=== PATIENT | female | born 1960 | race Caucasian/White ===

== ENCOUNTER 2023-08-04 12:15 | Outpatient (CLI) | payer OTHER, SELFPAY ==
--- NOTE | ~2023-08-04 | US_ITS ---
EXAMINATION: US venous doppler LE DATE: 08/04/2023 13:07 INDICATION: Right lower limb swelling TECHNIQUE: Grayscale ultrasound images without and with compression and Doppler ultrasound images of the right lower extremity veins were obtained. COMPARISON: None. FINDINGS: The visualized portions of right common femoral vein, profunda (deep) femoral vein, femoral vein, pop liteal vein, peroneal trunk, posterior tibial veins, peroneal veins, gastrocnemius vein and greater s aphenous vein outflow are patent. IMPRESSION: 1. No deep venous thrombosis in the right lower limb. Reviewed, dictated and finalized at location A. [employer]
== END 2023-08-04 12:16 | disposition home or self-care (01) ==
PROVIDERS: PCP Internal Medicine; Visit Provider Internal Medicine
DX: R22.42 Localized swelling, mass and lump, left lower limb (principal)
CPT/HCPCS: 93971

== ENCOUNTER 2023-11-08 14:06 | Outpatient (CLI) | payer OTHER, SELFPAY ==
--- NOTE | ~2023-11-08 | CT_ITS ---
EXAMINATION: CTA abdomen DATE: 11/08/2023 14:50 INDICATION: Epigastric abdominal pain. Chronic vascular disorders of intestine. Mesenteric vascular i nsufficiency. TECHNIQUE: Computed tomographic angiography (CTA) of the abdomen was performed with 100 mL Omnipaque- 350 intravenous contrast. The dose-length product was 626.28 mGy-cm. Maximum intensity projection 3D- reconstructions of the aorta and other arteries were constructed by the technologist on a separate wo rkstation. COMPARISON: None. FINDINGS: The visualized portions of the lung bases demonstrate mild atelectasis. No pleural effusion . The heart size is normal. No pericardial effusion. The liver and gallbladder are normal. Calcificat ions in the spleen are consistent with old granulomatous disease. The pancreas and right adrenal glan d are normal. There are 2 masses in left adrenal gland measuring soft tissue attenuation measuring up to 14 mm. The kidneys are normal. There is calcified atherosclerosis of the aorta and many of the ot her arteries. There is a 3.6 cm fusiform aneurysm of infrarenal aorta. There are patent stents in the common iliac arteries. There is mild stenosis of celiac axis, superior mesenteric artery, and inferi or mesenteric artery. There is mild stenosis of the renal arteries. There are no pathologically enlar ged lymph nodes. There is no free intraperitoneal fluid. There is severe lumbar spondylosis. IMPRESSION: 1. 3.6 cm fusiform aneurysm of infrarenal aorta. 2. No significant stenosis of the mesenteric arteries. 3. Left adrenal masses measuring up to 14 mm. In the absence of known malignancy, these findings are likely adenomas. Reviewed, dictated and finalized at location E. IMPRESSION: 1. 3.6 cm fusiform aneurysm of infrarenal aorta. 2. No significant stenosis of the mesenteric arteries. 3. Left adrenal masses measuring up to 14 mm. In the absence of known malignanc y, these findings are likely adenomas.
[2023-11-08 14:35] LABS: Estimated Glomerular Filt Rate 56
== END 2023-11-08 14:07 ==
LOC: MICIMG 14:07
PROVIDERS: PCP Internal Medicine
DX: K55.1 Chronic vascular disorders of intestine (principal); I71.43 Infrarenal abdominal aortic aneurysm, without rupture
CPT/HCPCS: 74175; Q9967

== ENCOUNTER 2023-12-23 10:02 | Outpatient (CLI) | payer OTHER, SELFPAY ==
[2023-12-23 10:45] LABS: Mean Corpuscular HGB Conc 34.1 g/dl (32-36); Mean Corpuscular Hemoglobin 31.6 pg (26-34); Mean Corpuscular Volume 92.6 fl (80-100); Mean Platelet Volume 10.8 fl (7.4-10.4); Platelet Count Result 251 k/mm3 (150-375); Red Blood Count 4.43 M/mm3 (4.2-5.4); Red Cell Distribution Width 12.8 % (11.5-14.5); White Blood Count 10.4 K/mm3 (4.5-10.0)
[2023-12-23 11:06] LABS: Alanine Aminotransferase 31 U/L (6-35); Albumin Level 4.2 g/dL (3.5-5.1); Alkaline Phosphatase 108 U/L (38-126); Amylase 61 U/L (30-110); Anion Gap 6 mmol/L (4-12); Aspartate Amino Transferase 30 U/L (14-36); Bilirubin,Total 0.4 mg/dL (0.2-1.3); Blood Urea Nitrogen 11 mg/dL (7-17); Calcium 9.1 mg/dL (8.4-10.2); Carbon Dioxide 27 mmol/L (22-30); Chloride 95 mmol/L (98-107); Estimated Glomerular Filt Rate > 60; Glucose 139 mg/dL (65-110); Lipase 117 U/L (23-300); Potassium 4.1 mmol/L (3.4-5.0); Sodium 128 mmol/L (137-145)
[2023-12-27 14:38] LABS: Immunoglobulin A 158 mg/dL (70-320); TTG IGA AB <1.0 U/mL
== END 2023-12-23 10:03 | disposition home or self-care (01) ==
LOC: ANHLAB 10:05
PROVIDERS: PCP Internal Medicine; Visit Provider Nurse Practitioner
DX: R14.0 Abdominal distension (gaseous) (principal); R10.816 Epigastric abdominal tenderness; R10.10 Upper abdominal pain, unspecified; K52.9 Noninfective gastroenteritis and colitis, unspecified
CPT/HCPCS: 36415; 80053; 82150; 82784; 83690; 85027; 86364

== ENCOUNTER 2023-12-24 09:58 | Outpatient (CLI) | payer OTHER, SELFPAY ==
[2023-12-24 11:45] LABS: Toxigenic C. Diff NEGATIVE (NEGATIVE)
[2023-12-29 16:01] LABS: H pylori Ag Stool Not Detected
[2024-01-05 10:25] LABS: Pancreatic Elastase, Stool 497
[2024-01-05 10:26] LABS: Calprotectin, Stool <5
== END 2023-12-24 09:59 | disposition home or self-care (01) ==
LOC: ANHLAB 09:59
PROVIDERS: PCP Internal Medicine; Visit Provider Nurse Practitioner
DX: A04.8 Other specified bacterial intestinal infections (principal); K29.50 Unspecified chronic gastritis without bleeding; K52.9 Noninfective gastroenteritis and colitis, unspecified; R10.10 Upper abdominal pain, unspecified; R10.816 Epigastric abdominal tenderness; R14.0 Abdominal distension (gaseous)
CPT/HCPCS: 82653; 83993; 87045; 87269; 87338; 87427; 87449; 87493

== ENCOUNTER 2023-12-29 09:29 | Outpatient (CLI) | payer OTHER, SELFPAY ==
--- NOTE | ~2023-12-29 | NM_ITS ---
EXAMINATION: NM hepatobiliary wo pharm DATE: 12/29/2023 12:05 INDICATION: Post prandial abdominal pain, bloating and nausea COMPARISON: None. TECHNIQUE: 5.2 mCi Tc-99m mebrofenin (Choletec) was administered intravenously. Scintigraphic images of the abdomen were obtained for one hour. At the 1 hour time point, the patient drank 8 oz Ensure, and imaging was continued for 60 minutes. Gallbladder ejection fraction was calculated by the technol ogist. FINDINGS: There is normal clearance of radiotracer from the blood pool. There is homogeneous tracer u ptake by the liver. Activity progresses to the bowel and gallbladder. The gallbladder ejection fract ion (GBEF) is 22%. Note that with this technique, normal GBEF >= 33%. IMPRESSION: 1. Gallbladder ejection fraction of 22% is below normal limits consistent with either gallbladder dy sfunction or chronic cholecystitis in the appropriate clinical setting. Reviewed, dictated and finalized at location A. IMPRESSION: 1. Gallbladder ejection fraction of 22% is below normal limits consistent with either gallbladder dysfunction or chronic cholecystitis in the appropriate cli nical setting.
== END 2023-12-29 09:30 | disposition home or self-care (01) ==
LOC: ANHIMG 09:30
PROVIDERS: PCP Internal Medicine; Visit Provider Nurse Practitioner
DX: R10.10 Upper abdominal pain, unspecified (principal); R10.816 Epigastric abdominal tenderness; R11.0 Nausea; R14.0 Abdominal distension (gaseous)
CPT/HCPCS: 78226; A9537

== ENCOUNTER 2024-01-17 01:02 | Day surgery (SDC) | payer OTHER, SELFPAY ==
[2024-01-10 13:29] VITALS: BMI 34.5
--- NOTE | 2024-01-10 13:32 | PC.NURSE ---
Addendum entered by Arnaldo Corbin RN 01/10/24 13:48: Also take Metoprolol morning of surgery. Original Note: Report to the Outpatient Waiting Room, entrance under the green pavilion located off [facility], at time _0800_ on date _[id number]_. Planned Procedure Time: _1000_. Time changes happen often and if your time is changed the preop area will call you the afternoon before. - You and your visitor will be asked to self-screen and do not enter if you have any COVID symptoms. - A mask is optional within the hospital at this time. Patients may have clear liquids (water, carbonated beverages, clear teas, apple juice) until 3 hours prior to surgery with a maximum of 20 ounces. - No food from midnight until time of surgery Take the following medications with a SIP of water the morning of surgery: __Alprazolam if needed. DO NOT STOP ANY OF YOUR OTHER PRESCRIPTION MEDICATIONS PRIOR TO SURGERY ?EXCEPT THE FOLLOWING Medications to discontinue per physician ____Says is stopping Chlopedogrel_today per Dr Crocker's instructions. Date to take last uyat__[id number] Please no make-up, nail faroese, hairspray, perfume, deodorant, or body powder the day of surgery. No jewelry (including any body piercings) or valuables the day of surgery, leave them at home. Please take a shower or bath the night before, or the morning of, surgery with an antibacterial soap. Wear comfortable, loose fitting clothing. - Jewelry must be removed prior to entering the operating room. Rings and piercings that are not removed may be cut off. - The hospital will not accept responsibility for valuables. - Please leave all valuables, including medications, at home the day of surgery. If you are going home after surgery, a licensed class b driver must drive you home. - NO public transportation without another adult if you receive anesthesia. - We recommend that an adult stay with you for 24 hours following discharge. - We also recommend that you do not drive, make important decision, drink alcoholic beverages, or take any drugs that were not prescribed by your health care provider for at least 24 hours after your discharge time. Follow any additional instructions given to you from your surgeon. If you or anyone in your household have experienced Covid symptoms in the past week, please notify your surgeon or the nurse liaison at the phone number below for possible testing. Telephone instructions given to __Tammy___and asked if any additional questions and then verbalized understanding. Patient advised to call surgeon office or pre surgery nurse liaison [phone] if any additional questions.
[2024-01-17] VITALS (18 sets, daily range): BP systolic 118–161; BP diastolic 58–85; PULSE 54–82; RESP 10–23; TEMP 36.1–37.2; O2SAT 90–98; BMI 34.4
[2024-01-17] MEDS: LACTATED RINGERS 1,000 ML 30 ML IV CONT ×2 (09:35→13:47)
[2024-01-17] MEDS: ACETAMINOPHEN 500 MG TABLET 1000 MG PO ×2 (09:48→20:46)
[2024-01-17 09:53] LABS: Sodium 129 mmol/L (137-145)
--- NOTE | 2024-01-17 10:00 | SUR.PREOP ---
1000- Notified Dr. Gilliam and Dr. Crocker of patient's sodium level 129 from lab draw today. Per Dr. Gilliam and Dr. Crocker OK to proceed with procedure.
[2024-01-17 10:04] LABS: Glucose Point of Care 128 mg/dl (65-105)
--- NOTE | 2024-01-17 10:12 | WPDHPUPDATE1 ---
History and Physical Update Update Date/Time: 01/17/24 10:12 History and Physical has been reviewed, including an updated exam of the patient. There are NO changes in the patient's condition. Risks, benefits, and alternatives have been discussed and questions answered. Patient agrees to proceed with procedure.
--- NOTE | 2024-01-17 10:19 | WPDANESEPPF ---
Anes - Initial Pre Proc Eval Procedure: Operation Date: 01/17/24 10:00 Proposed Procedures p Laparoscopic Cholecystectomy, Possible Open - Todd Crocker MD Date/Time: 01/17/24 10:19 Surgeon: Todd Crocker MD Pre Op Diagnosis: epigastric abdominal pain,biliary dyskinesia Patient Data Age: 63 Gender: F Height: 1.63 m Weight: 90.9 kg Last Vital Signs Temp 97.4 F L 01/17/24 09:06 Pulse 70 01/17/24 09:06 Resp 16 01/17/24 09:06 BP 123/85 01/17/24 09:06 Pulse Ox 98 01/17/24 09:06 O2 Del Method Room Air 01/17/24 09:06 Allergies Allergy/AdvReac Type Severity Reaction Status Date / Time naproxen Allergy Intermediate Gastrointestinal Verified 01/17/24 09:55 Upset prednisone Allergy Intermediate Rash Verified 01/17/24 09:55 NSAIDS (Non-Steroidal Allergy Unknown Unknown Verified 01/17/24 09:55 Anti-Inflamma STEROIDS Allergy Intermediate HIVES Uncoded 01/10/24 13:17 Home Medications Medication Instructions Recorded Confirmed Type alprazolam 0.5 mg tablet 0.5 mg PO DAILY 05/25/22 01/17/24 History amlodipine 10 mg tablet 10 mg PO DAILY 05/25/22 01/10/24 History atorvastatin 40 mg tablet 40 mg PO DAILY 05/25/22 01/10/24 History clopidogrel 75 mg tablet 75 mg PO DAILY 05/25/22 01/10/24 History levothyroxine 175 mcg tablet 175 mcg PO DAILY 05/25/22 01/10/24 History (Synthroid) metoprolol tartrate 50 mg tablet 50 mg PO BID 05/25/22 01/17/24 History olmesartan 40 mg tablet 40 mg PO DAILY 05/25/22 01/10/24 History paroxetine HCl 40 mg tablet 40 mg PO DAILY 05/25/22 01/10/24 History csogxe-uufgtwil-wlgnbkp 2 cap PO QID #300 caps 12/29/23 01/10/24 Rx 36,000-114,000-180,000 unit capsule,delay rel (Creon) colestipol 1 gram tablet See Rx Instructions .Route 01/03/24 01/10/24 Rx .COMPLEX #180 tabs sucralfate 1 gram tablet See Rx Instructions .Route 01/03/24 01/10/24 Rx .COMPLEX #360 tabs glimepiride 1 mg tablet 1 mg PO QPM 01/10/24 01/10/24 History Laboratory Tests 01/17/24 01/17/24 09:42 09:47 Sodium 129 L mmol/L (137-145) POC Capillary Glucose 128 H mg/dl (65-105) Patient hx anesthesia problems: none Family hx anesthesia problems: none Results Review: All pre-operative results and documents have been reviewed as part of the pre-operative evaluation. [facility] Past Medical History Medical History Anxiety and depression Aortic dissection Arthritis Hepatitis (~1970) High cholesterol Hypertension Hypothyroidism Primary osteoarthritis of left knee Screening mammogram, encounter for Surgical History Surgical History History of breast biopsy (L) breast--benign History of cataract surgery (~2015) History of gynecologic surgery cryotherapy to cervix History of hand surgery (B) hand surgery History of left knee replacement History of right knee surgery History of suburethral sling procedure (~05/2018) History of surgery on lower extremity (~2016) stent in (R) leg History of total hysterectomy Family History Family History Father Diabetes mellitus Heart disease Cerebrovascular accident Hypertension Family history of malignant neoplasm Patient's father is Mother Family history of malignant neoplasm Grandparent Family history of malignant neoplasm maternal grandmother Other Family history of arthritis Family history of cardiovascular disease Family history of seizure disorder Social History Social History (Updated 01/05/24 @ 13:15 by Lashanda Louie CMA) Smoking packs per day: 1.5 Smoking cigarettes per day: 30.0 Years smoked: 45 Smoking pack-years: 67.50 Smoking status: Current every day smoker Tobacco type: cigarettes Alcohol intake: current Drinks per week: 21 Substance use: never Substance use type: does not
[2024-01-17] MEDS: ceFAZolin 2 GM/D5W 50 ML 2 GM/50 ML BAG IVPB (11:44)
[2024-01-17] MEDS: LIDO 1%/EPINEPHRINE 1:100,000 20 ML VIAL 30 ML INFILTRATE (11:59)
[2024-01-17] MEDS: BUPivacaine HCL 0.5% 10 ML AMP 30 ML INFILTRATE (12:00)
[2024-01-17 14:08] LABS: Glucose Point of Care 220 mg/dl (65-105)
--- NOTE | 2024-01-17 14:19 | SUR.PHASEI ---
1403 - o2 sat at 88-90% on nonrebreather and with nasal airway in place. dr. colindres called and aware 1418 - dr. colindres in PACU assessing pt. order received for albuterol treatment. dr. colindres aware of accucheck 220. no orders received at this time
[2024-01-17] MEDS: ALBUTEROL SULFATE NEB 2.5 MG/3 ML INH INHALATION (14:30)
[2024-01-17] MEDS: fentaNYL CITRATE INJ (*CRX) 100 MCG/2 ML VIAL 25 MCG IV PUSH (14:51)
--- NOTE | 2024-01-17 16:10 | ADMGEN ---
This patient, Melissa Reagan, was admitted to Medical Room 249-01. Patient/family oriented to hospital policies and general routines including ID bracelet, bed and alarms, visiting hours, pain management, procedures, bathroom and other care routines, personal items, smoking policy, room service/diet, and visiting hours. Information on how to activate the Rapid Response Team has been discussed. Patient/Family are encouraged to report perceived risks to care and to ask questions if they do not understand what they are told or what they should do.
[2024-01-17] MEDS: HYDROcodone/acetaminophen (*CRX) 5-325 MG TABLET 1 TAB PO (16:39)
[2024-01-17 16:59] LABS: Glucose Point of Care 203 mg/dl (65-105)
[2024-01-17] MEDS: LIPASE/AMYLASE/PROTEASE 12,000 UNITS CAP 6 CAP PO ×2 (17:42→20:41)
[2024-01-17] MEDS: PARoxetine 20 MG TABLET 40 MG PO (17:44)
[2024-01-17] MEDS: ATORVASTATIN 40 MG TABLET PO (17:44)
[2024-01-17] MEDS: SUCRALFATE 1 GM TABLET BY MOUTH ×2 (17:44→20:45)
[2024-01-17] MEDS: LEVOTHYROXINE SODIUM 75 MCG TABLET PO (17:44)
[2024-01-17] MEDS: GLIMEPIRIDE 1 MG TABLET PO (17:45)
[2024-01-17 20:32] LABS: Glucose Point of Care 229 mg/dl (65-105)
[2024-01-17] MEDS: oxyCODONE HCL (*CRX) 5 MG TAB IR PO (20:41)
[2024-01-17] MEDS: METOPROLOL TARTRATE 50 MG TAB PO (20:42)
[2024-01-18] VITALS (8 sets, daily range): BP systolic 107–132; BP diastolic 50–69; PULSE 70–75; RESP 16–21; TEMP 36.5–37.1; O2SAT 90–96
[2024-01-18] MEDS: HYDROcodone/acetaminophen (*CRX) 5-325 MG TABLET 1 TAB PO ×2 (04:34→12:55)
[2024-01-18 05:48] LABS: Basophils Percent Auto 0.4 % (0.2-1.2); Eosinophils Absolute Auto 0.2 K/mm3 (0-0.3); Eosinophils Percent Auto 1.4 % (0-4.4); Hematocrit 38.4 % (37.0-47.0); Hemoglobin 12.8 g/dL (12.0-15.0); Immature Granulocyte Absolute 0.04 K/mm3 (0.00-0.031); Immature Granulocyte Percent A 0.4 % (0-0.5); Lymphocytes Absolute Auto 1.06 K/mm3 (0.9-3.2); Lymphocytes Percent Auto 9.9 % (18.3-44.2); Mean Corpuscular HGB Conc 33.3 g/dl (32-36); Mean Corpuscular Hemoglobin 31.6 pg (26-34); Mean Corpuscular Volume 94.8 fl (80-100); Mean Platelet Volume 10.2 fl (7.4-10.4); Monocytes Absolute Auto 0.9 K/mm3 (0.1-0.6); Monocytes Percent Auto 8.1 % (2.6-8.5); Neutrophils Absolute Auto 8.6 K/mm3 (1.3-6.7); Neutrophils Percent Auto 79.8 % (45.5-73.1); Platelet Count Result 231 k/mm3 (150-375); Red Blood Count 4.05 M/mm3 (4.2-5.4); Red Cell Distribution Width 13.3 % (11.5-14.5); White Blood Count 10.7 K/mm3 (4.5-10.0)
[2024-01-18 05:59] LABS: Alanine Aminotransferase 43 U/L (6-35); Alkaline Phosphatase 93 U/L (38-126); Anion Gap 7 mmol/L (4-12); Aspartate Amino Transferase 39 U/L (14-36); Bilirubin,Total 0.8 mg/dL (0.2-1.3); Blood Urea Nitrogen 11 mg/dL (7-17); Calcium 8.5 mg/dL (8.4-10.2); Carbon Dioxide 27 mmol/L (22-30); Chloride 94 mmol/L (98-107); Estimated CRCL calculation 78 ml/min; Estimated Glomerular Filt Rate > 60; Glucose 142 mg/dL (65-110); Potassium 4.1 mmol/L (3.4-5.0); Sodium 128 mmol/L (137-145)
--- NOTE | 2024-01-18 07:59 | P.PNAN_ITS ---
Anes - Prog Note Post-Op Date/Time: 01/18/24 07:59 Cardiovascular status: normal Respiratory status: normal Airway patency: baseline Mental status: baseline Post-Op hydration status: normal Vital Signs: Last Vital Signs Temp 36.5 C 01/18/24 04:08 Pulse 75 01/18/24 04:08 Resp 20 01/18/24 04:08 BP 130/69 01/18/24 04:08 Pulse Ox 96 01/18/24 04:08 O2 Del Method Nasal Cannula 01/17/24 20:00 O2 Flow Rate 4 01/17/24 20:00 Pain Score (VAS): 09/25 I/O: Intake & Output 01/17/24 01/17/24 01/18/24 15:59 23:59 07:59 Intake Total 250 120 290 Output Total 430 Balance 250 120 -140 Laboratory Tests 01/18/24 05:28 01/18/24 05:28 01/17/24 01/17/24 01/17/24 09:42 09:47 14:04 WBC RBC Hgb Hct MCV MCH MCHC RDW Plt Count MPV Immature Gran % (Auto) Neut % (Auto) Lymph % (Auto) Mccormick % (Auto) Eos % (Auto) Baso % (Auto) Lymph # (Auto) Mccormick # (Auto) Eos # (Auto) Baso # (Auto) Abs Immat Gran (auto) Absolute Neuts (auto) Absolute Nucleated RBC Nucleated RBC % Sodium 129 L Potassium Chloride Carbon Dioxide Anion Gap BUN Creatinine Estim Creat Clear Calc Estimated GFR Glucose POC Capillary Glucose 128 H 220 H Calcium Total Bilirubin AST ALT Alkaline Phosphatase Total Protein Albumin 01/17/24 01/17/24 01/18/24 16:52 19:45 05:28 WBC 10.7 H RBC 4.05 L Hgb 12.8 Hct 38.4 MCV 94.8 MCH 31.6 MCHC 33.3 RDW 13.3 Plt Count 231 MPV 10.2 Immature Gran % (Auto) 0.4 Neut % (Auto) 79.8 H Lymph % (Auto) 9.9 L Mccormick % (Auto) 8.1 Eos % (Auto) 1.4 Baso % (Auto) 0.4 Lymph # (Auto) 1.06 Mccormick # (Auto) 0.9 H Eos # (Auto) 0.2 Baso # (Auto) 0.0 Abs Immat Gran (auto) 0.04 H Absolute Neuts (auto) 8.6 H Absolute Nucleated RBC 0.000 Nucleated RBC % 0.0 Sodium 128 L Potassium 4.1 Chloride 94 L Carbon Dioxide 27 Anion Gap 7 BUN 11 Creatinine 0.70 Estim Creat Clear Calc 78 Estimated GFR > 60 Glucose 142 H POC Capillary Glucose 203 H 229 H Calcium 8.5 Total Bilirubin 0.8 AST 39 H ALT 43 H Alkaline Phosphatase 93 Total Protein 7.0 Albumin 4.0 Post-procedural complaints: none Patient Feedback: Patient satisfied with anesthetic care.
[2024-01-18 08:26] LABS: Glucose Point of Care 142 mg/dl (65-105)
[2024-01-18] MEDS: OLMESARTAN MEDOXOMIL 20 MG TABLET 40 MG PO (08:26)
[2024-01-18] MEDS: METOPROLOL TARTRATE 50 MG TAB PO (08:26)
[2024-01-18] MEDS: LIPASE/AMYLASE/PROTEASE 12,000 UNITS CAP 6 CAP PO (08:26)
--- NOTE | 2024-01-18 10:45 | PM.PNGS ---
Progress Note: A&P Assessment and Plan (1) Acalculous cholecystitis: Code(s): K81.9 - Cholecystitis, unspecified Status: Acute Assessment and Plan: Postop day 1 following laparoscopic cholecystectomy. She is doing well this morning. MARK drain is serosanguineous. Will advance to a low fat diet. Increase activity and try ambulating in the halls. Will also have nursing wean down her oxygen. If she is unable to wean off O2, will need to re-evaluate. Encouraged IS use. Hopefully she can discharge later today or tomorrow if she is stable and off oxygen. Will plan to remove her MARK drain prior to discharge. Plan I have discussed the patient's case and plan of care with Dr. Crocker. Subjective Subjective Date/Time Seen: 01/18/24 10:45 Post Op day: 1 (Laparoscopic cholecystectomy) Patient reports: no new complaints, voiding w/o difficulty, flatus, no bowel movement and afebrile Interval history: Patient required oxygen following surgery and is currently on 4 L this morning. She was kept overnight for monitoring. She denies any shortness of breath or chest pain. She has been ambulating with the staff and tolerating this well. The staff has decreased her oxygen to 2 L via nasal cannula this morning with an oxygen saturation of 95%. She is tolerating clear liquids with no nausea or vomiting. No other complaints at this time. She had 30 cc out of her MARK drain overnight. Exam Const: General: comfortable and no acute distress Orientation/consciousness: patient oriented x3 Resp: Effort & Inspection: normal respiratory effort Auscultation: clear to auscultation bilaterally Cardio: Rate: regular rate Rhythm: regular rhythm GI: Inspection: non-distended, incision (Dry with glue intact, no erythema or drainage) and other (Right upper quadrant MARK drain with serosanguineous drainage) GI Palp: Yes Soft to palpation, Yes Tenderness to palpation present (GI) (Expected incisional tenderness), No Guarding due to palpation present (GI), Yes No hepatosplenomegaly present and No Rebound tenderness present Auscultation: Hypoactive bowel sounds present Objective Data Vital Signs Vital Signs: Vital Signs - 24 hr 01/17/24 13:47 01/17/24 14:00 01/17/24 14:15 Temperature 96.9 F L Pulse Rate 54 L 65 67 Respiratory Rate 23 H 20 20 Blood Pressure 157/67 H 154/74 H 161/77 H Pulse Oximetry 92 90 91 Oxygen Delivery Simple Face Mask Non-Rebreather Mask Non-Rebreather Mask Oxygen Flow Rate 8 10 10 01/17/24 14:30 01/17/24 14:45 01/17/24 15:00 Temperature Pulse Rate 72 72 75 Respiratory Rate 20 18 18 Blood Pressure 148/69 H 140/60 147/61 H Pulse Oximetry 95 93 93 Oxygen Delivery Non-Rebreather Mask Simple Face Mask Simple Face Mask Oxygen Flow Rate 10 8 8 01/17/24 15:15 01/17/24 15:30 01/17/24 14:30 Temperature Pulse Rate 72 72 71 Respiratory Rate 20 16 16 Blood Pressure 121/64 130/58 L Pulse Oximetry 94 96 Oxygen Delivery Nasal Cannula Nasal Cannula Oxygen Flow Rate 4 4 01/17/24 14:40 01/17/24 16:23 01/17/24 16:00 Temperature 97.7 F Pulse Rate 73 73 Respiratory Rate 16 10 L Blood Pressure 138/60 Pulse Oximetry 94 95 Oxygen Delivery Nasal Cannula Oxygen Flow Rate 4 01/17/24 16:15 01/17/24 16:20 01/17/24 16:45 Temperature 98.0 F 98.0 F Pulse Rate 76 75 Respiratory Rate 14 16 Blood Pressure 130/62 124/62 Pulse Oximetry 95 95 95 Oxygen Delivery Nasal Cannula Oxygen Flow Rate 4 01/17/24 18:00 01/17/24 19:46 01/17/24 20:00 Temperature 98.3 F 98.9 F Pulse Rate 81 81 82 Respiratory Rate 12 18 18 Blood Pressure 133/60 118/64 Pulse Oximetry 96 96 97 Oxygen Delivery Nasal Cannula Oxygen Flow Rate 4 01/18/24 04:08 01/18/24 08:19 01/18/24 08:26 Temperature 97.7 F Pulse Rate 75 72 Respiratory Rate 20 Blood Pressure 130/69 Pulse Oximetry 96 95 Oxygen Delivery Nasal Cannula Oxygen Flow Rate 4 01/18/24 08:20 01/18/24 10:00 Temperature 97.7 F Puls
[2024-01-18 11:46] LABS: Glucose Point of Care 138 mg/dl (65-105)
--- NOTE | 2024-01-18 13:35 | PM.DS ---
DS: Admitting Diagnosis Discharge Date 01/18/2024 Admitting Diagnosis Biliary dyskinesia Epigastric abdominal pain Anti-platelet therapy DS: Discharge Diagnosis Discharge Diagnosis (1) Acalculous cholecystitis: Code(s): K81.9 - Cholecystitis, unspecified Status: Acute (2) Antiplatelet or antithrombotic long-term use: Code(s): Z79.02 - long term care social worker (current) use of antithrombotics/antiplatelets Status: Acute DS: Summary Hospital Course Reason for hospitalization: This is a 63-year-old woman who was seen by Dr. Crocker in a our office as an outpatient for epigastric abdominal pain and biliary dyskinesia. Discussions had regarding treatment options and decision was made to proceed with a laparoscopic cholecystectomy. She presented for outpatient surgery on 01/17/2024. Hospital Course: She underwent laparoscopic cholecystectomy by Dr. Crocker on 01/17/2024. There were a lot of adhesions and inflammation during surgery and she had a MARK drain placed for monitoring. In recovery, she required oxygen after extubation as well. She was kept overnight for monitoring with the MARK drain in place. This morning, she was on 4 L of O2. She has been able to easily wean off of oxygen today with an O2 saturation of 95%. She was able to ambulate and walk in the halls and maintained an oxygen saturation greater than 95% with ambulating. Her diet was advanced to a low-fat diet today. She is tolerating her diet well with no nausea or vomiting. Pain has been well controlled. Her MARK drain appears serosanguineous today without any bilious appearance. After discussing with Dr. Crocker, the patient appears stable for discharge. Will remove her MARK drain prior to discharge. He is okay with her resuming her Plavix on discharge. Will have her follow-up in the office in 2 weeks. Time spent discussing smoking cessation with patient: 3 to 10 minutes Status at Discharge Functional status at discharge: independent ambulation Overall status at discharge: patient is progressing back to baseline Time Spent with Patient Time attestation: Total time spent providing and/or coordinating discharge services: Time spent: Less than 30 minutes DS: Data Data Completed and Pending Completed studies during hospitalization: Pending at discharge 01/17/24 12:00 Surgical [PTH] Routine Labs on day of discharge: Labs from last 24 hours 01/18/24 01/18/24 01/18/24 11:32 08:08 05:28 WBC 10.7 H RBC 4.05 L Hgb 12.8 Hct 38.4 MCV 94.8 MCH 31.6 MCHC 33.3 RDW 13.3 Plt Count 231 MPV 10.2 Immature Gran % (Auto) 0.4 Neut % (Auto) 79.8 H Lymph % (Auto) 9.9 L Kings % (Auto) 8.1 Eos % (Auto) 1.4 Baso % (Auto) 0.4 Lymph # (Auto) 1.06 Kings # (Auto) 0.9 H Eos # (Auto) 0.2 Baso # (Auto) 0.0 Abs Immat Gran (auto) 0.04 H Absolute Neuts (auto) 8.6 H Absolute Nucleated RBC 0.000 Nucleated RBC % 0.0 Sodium 128 L Potassium 4.1 Chloride 94 L Carbon Dioxide 27 Anion Gap 7 BUN 11 Creatinine 0.70 Estim Creat Clear Calc 78 Estimated GFR > 60 Glucose 142 H POC Capillary Glucose 138 H 142 H Calcium 8.5 Total Bilirubin 0.8 AST 39 H ALT 43 H Alkaline Phosphatase 93 Total Protein 7.0 Albumin 4.0 01/17/24 01/17/24 01/17/24 19:45 16:52 14:04 WBC RBC Hgb Hct MCV MCH MCHC RDW Plt Count MPV Immature Gran % (Auto) Neut % (Auto) Lymph % (Auto) Kings % (Auto) Eos % (Auto) Baso % (Auto) Lymph # (Auto) Kings # (Auto) Eos # (Auto) Baso # (Auto) Abs Immat Gran (auto) Absolute Neuts (auto) Absolute Nucleated RBC Nucleated RBC % Sodium Potassium Chloride Carbon Dioxide Anion Gap BUN Creatinine Estim Creat Clear Calc Estimated GFR Glucose POC Capillary Glucose 229 H 203 H 220 H Calcium Total Bilirubin AST ALT
--- NOTE | 2024-01-18 16:36 | W.PM.PROC2 ---
Procedure Note - Detailed Date of Procedure 01/18/24 Pre-op Diagnosis epigastric abdominal pain,biliary dyskinesia Post-op Diagnosis Same Procedure Performed Laparoscopic cholecystectomy. Surgeon Todd Crocker MD Anesthesia General Indications Findings Description of Procedure The patient had no gallstones. Gallbladder wall is only mildly thickened and there were copious tenacious adhesions of the omentum to the gallbladder wall. I then placed additional trocar ports in the abdomen to perform the dissection or laparoscopically. The gallbladder was held with a laparoscopic grasper at the dome and then the copious and tenacious adhesions of the omentum to the gallbladder wall were bluntly stripped down. This exposed infundibular gallbladder which was held with a 2nd rest laparoscopic grasper. I was then able to start my dissection down along the infundibular gallbladder to identify what appeared to be the cystic duct. Before acute get the duct completely encircle with bisector the gallbladder wall ripped in a copious amounts of nonpurulent bile drain out the gallbladder. No gallstones were noted drained out. I then continued my dissection on what appeared to be the cystic duct and dissected this structure out circumferentially. The cystic artery was identified dissected out circumferentially as well. Once I had left was the critical view I then placed 2 clips proximally cystic duct and 2 clips distally high on infundibular gallbladder. Cystic duct was then divided with Endo Gerald. In a similar fashion cystic artery was clipped and divided as well. I then transected the gallbladder at the distal portion of the infundibulum. I then placed 0 Endoloops x2 on the small infundibular remnant. There was evidence of bile leak after it was ligated. The gallbladder was resected off the liver utilizing electrocautery. once the gallbladder completely free from liver is placed into an Endo-Catch bag and brought out through the epigastric port site. Gallbladder had no stones within it. It was sent to pathology for examination. I then irrigated out the right upper quadrant abdomen copious amounts sterile saline solution. There was some bleeding from the gallbladder bed. Then treated with topical hemostatic agents to include Surgicel. This was then eventually cauterized with pinpoint cautery to achieve hemostasis. The area was then irrigated sterile saline solution hemostasis was good. No evidence of bile leak remained. I aspirated fluid from the right upper quadrant the abdomen until it was relatively clear. I then removed all the trocar ports under visualization all port sites appeared hemostatic. I then allowed the abdomen decompress . The incisions were then cleaned and then 0 Vicryl sutures placed in the periumbilical trocar port and in the right upper quadrant trocar port. Subcutaneous tissues then closed with multiple layers of interrupted 2-0 and 3-0 Vicryl sutures. skin edges were approximated utilizing a running subcuticular 4 Monocryl suture the incisions were then cleaned and skin glue sterile dressings were applied. the pertinent physical exam and reviewed and confirmed the patient's medicine list.? ? I have formulated the surgical care plan and I agree with the documented note above. The patient tolerated the procedure well no complications. All sponges, needles, and instrument counts were correct at the end procedure. EBL was _100__cc. The patient was awakened and taken to recovery in stable and satisfactory condition. Implants None Estimated Blood Loss 100 Urine Output 400 Drains Yes ( 15 [place] round Marco Antonio drain right upper quadrant.) Packing No Pathology None sent Complications No immediate complications Condition Stable Disposition PACU [facility] Billing Surgery - Charge Forward: Surgery Billing
== END 2024-01-18 14:42 | disposition home or self-care (01) ==
LOC: ANHSURGERY 09:51 → ANH2MED 15:45
PROVIDERS: Anesthesiology; PCP Internal Medicine; Visit Provider Surgery
PROC: 0FT44ZZ Resection of Gallbladder, Percutaneous Endoscopic Approach (ICD-10-PCS; CPT 47562; principal; 2024-01-17 10:00)
DX: K80.20 Calculus of gallbladder without cholecystitis without obstruction (principal); Z79.02 Long term (current) use of antithrombotics/antiplatelets; F17.210 Nicotine dependence, cigarettes, uncomplicated; F41.8 Other specified anxiety disorders; I10 Essential (primary) hypertension; E03.9 Hypothyroidism, unspecified; E78.00 Pure hypercholesterolemia, unspecified
CPT/HCPCS: 47562; 36415; 80053; 82948; 84295; 85025; 88304; 94640; A9270; J0690; J2405; J2704; J3010; J7030; J7120

== ENCOUNTER 2024-05-19 03:02 | Day surgery (SDC) | payer OTHER, SELFPAY ==
--- NOTE | 2024-05-09 12:56 | PC.NURSE ---
Spoke with PATIENT regarding medication Plavix. Pt. verbalizes understanding that the last dose of Plavix is to be taken on _05/09/2024 and the Endoscopist will instruct them when to restart after the procedure. Pt was also on Cilostazol earlier in the year but ran out and states it was a trial to see if it help with her peripheral problems and she did not feel any different and plans to discuss next visit with Dr. Dorsey.
[2024-05-12 10:28] VITALS: BMI 33.1
[2024-05-19 09:18] VITALS: BP 114/63; PULSE 72; RESP 16; TEMP 36.4; O2SAT 97; BMI 32.3
[2024-05-19] MEDS: LACTATED RINGERS 1,000 ML 150 ML IV CONT (09:45)
[2024-05-19 09:53] LABS: Glucose Point of Care 140 mg/dl (65-105)
--- NOTE | 2024-05-19 10:04 | WPDANESEPPF ---
Anes - Initial Pre Proc Eval Procedure: Operation Date: 05/19/24 10:30 Proposed Procedures p Esophagogastroduodenoscopy & Colonoscopy - Kendall Barrios MD Date/Time: 05/19/24 10:04 Surgeon: Kendall Barrios MD Pre Op Diagnosis: IBS Patient Data Age: 63 Gender: F Height: 1.65 m Weight: 88.1 kg Last Vital Signs Temp 97.5 F L 05/19/24 09:18 Pulse 72 05/19/24 09:18 Resp 16 05/19/24 09:18 BP 114/63 05/19/24 09:18 Pulse Ox 97 05/19/24 09:18 O2 Del Method Room Air 05/19/24 09:18 Allergies Allergy/AdvReac Type Severity Reaction Status Date / Time naproxen Allergy Intermediate Gastrointestinal Verified 05/19/24 09:49 Upset prednisone Allergy Intermediate Rash Verified 05/19/24 09:49 NSAIDS (Non-Steroidal Allergy Unknown Gastrointestinal Verified 05/19/24 09:49 Anti-Inflamma Upset STEROIDS Allergy Intermediate HIVES Uncoded 05/19/24 09:49 Home Medications Medication Instructions Recorded Confirmed Type alprazolam 0.5 mg tablet 0.5 mg PO TID PRN Anxiety 05/25/22 05/19/24 History amlodipine 10 mg tablet 10 mg PO QPM 05/25/22 05/19/24 History atorvastatin 40 mg tablet 40 mg PO QPM 05/25/22 05/19/24 History clopidogrel 75 mg tablet 75 mg PO QPM 05/25/22 05/19/24 History levothyroxine 175 mcg tablet 175 mcg PO QPM 05/25/22 05/19/24 History (Synthroid) metoprolol tartrate 50 mg tablet 50 mg PO BID 05/25/22 05/19/24 History olmesartan 40 mg tablet 40 mg PO QPM 05/25/22 05/19/24 History paroxetine HCl 40 mg tablet 40 mg PO QPM 05/25/22 05/19/24 History glimepiride 1 mg tablet 2 mg PO QAM 01/10/24 05/19/24 History glimepiride 1 mg tablet 1 mg PO QPM 05/12/24 05/19/24 History lansoprazole 30 mg capsule,delayed 30 mg PO HS 05/12/24 05/19/24 History release belykk-mgnhsuyk-hooqdea 2 cap PO TID 05/12/24 05/19/24 History 36,000-114,000-180,000 unit capsule,delay rel (Creon) vibegron 75 mg tablet (Gemtesa) 75 mg PO HS 05/12/24 05/19/24 History Laboratory Tests 05/19/24 09:39 POC Capillary Glucose 140 H mg/dl (65-105) Patient hx anesthesia problems: none Family hx anesthesia problems: none Results Review: All pre-operative results and documents have been reviewed as part of the pre-operative evaluation. [facility] Past Medical History Medical History Antiplatelet or antithrombotic long-term use Anxiety and depression Aortic dissection Arthritis Chronic alcohol abuse Epigastric abdominal pain Hepatitis (~1970) High cholesterol Hypertension Hypothyroidism Irritable bowel syndrome with diarrhea Primary osteoarthritis of left knee Screening mammogram, encounter for Surgical History Surgical History History of breast biopsy (L) breast--benign History of cataract surgery (~2015) History of gynecologic surgery cryotherapy to cervix History of hand surgery (B) hand surgery History of laparoscopic cholecystectomy 01/17/24 History of left knee replacement History of right knee surgery History of suburethral sling procedure (~05/2018) History of surgery on lower extremity (~2016) stent in (R) leg History of total hysterectomy Family History Family History Father Diabetes mellitus Heart disease Cerebrovascular accident Hypertension Family history of malignant neoplasm Patient's father is Mother Family history of malignant neoplasm Grandparent Family history of malignant neoplasm maternal grandmother Other Family history of arthritis Family history of cardiovascular disease Family history of seizure disorder Social History Social History Smoking packs per day: 1.5 Smoking cigarettes per day: 30.0 Years smoked: 45 Smoking pack-years: 67.50 Smoking status: Current every day smoker Tobacco type: cigarettes Second hand tobacco smoke exposure: Yes Alcohol intake: current Drinks per week: 12 Alcohol use details: ROSA/RAZIA Substance use: never Substance use type: does not use Do You Feel Safe in your Home?: Yes Lack of Transportation: No Lack of Food: Never True Current Housing: I Have Housing Concerned About Future Housing: No Difficulty Paying Gas/Electric Bills: No Difficulty Paying for Meds: No Currently Unemployed: No Education: High School Diploma/GED Difficulty w/ Childcare or Family Care: No Living arrangements: with family Additional living arrangements comments: Occupation/Education: retired Additional occupation/education comments: driving school bus Gender identity (if verbalized by the patient): Female Sexual Orientation (if Verbalized by the Patient): Straight or Heterosexual Spiritual care concerns: No Anes - Eval Final PreProcedure Day of Procedure 05/19/24 10:04 Patient weight: overweight Heart: regular rate and rhythm Lungs: decreased breath sounds Airway: Mallampati scale class II Neurological: alert and oriented Last oral intake: >/= 8 hours ASA classification: III Emergent: no Anesthetic plan: proceed Anesthesia type and monitoring: general GIVS and standard monitoring Results Review: All pre-operative results and documents have been reviewed as part of the pre-operative evaluation. Informed Consent: The patient's anesthetic plan and its attendant risks and benefits were discussed with the patient/family/POA. Questions were solicited and answers provided to the satisfaction of the patient/family/POA.
--- NOTE | 2024-05-19 10:07 | PM.IMHP ---
H&P: HPI History of Present Illness Date/Time: 05/19/24 10:07 Chief Complaint: Dyspepsia, abdominal distension, change in bowel habits. Narrative: This patient has been seen last month in consultation with several GI complaints, including early satiety, nausea, intermittent diarrhea, abdominal distension. She has tried multiple medications but Creon seems to be helping for diarrhea. She had no response to Xifaxan. Of note, she had a laparoscopic cholecystectomy for gallbladder dysfunction, But diarrhea did not get resolved with colestipol PMFSH Past Medical History Medical History Antiplatelet or antithrombotic long-term use Anxiety and depression Aortic dissection Arthritis Chronic alcohol abuse Epigastric abdominal pain Hepatitis (~1970) High cholesterol Hypertension Hypothyroidism Irritable bowel syndrome with diarrhea Primary osteoarthritis of left knee Screening mammogram, encounter for Surgical History Surgical History History of breast biopsy (L) breast--benign History of cataract surgery (~2015) History of gynecologic surgery cryotherapy to cervix History of hand surgery (B) hand surgery History of laparoscopic cholecystectomy 01/17/24 History of left knee replacement History of right knee surgery History of suburethral sling procedure (~05/2018) History of surgery on lower extremity (~2016) stent in (R) leg History of total hysterectomy Family History Family History Father Diabetes mellitus Heart disease Cerebrovascular accident Hypertension Family history of malignant neoplasm Patient's father is Mother Family history of malignant neoplasm Grandparent Family history of malignant neoplasm maternal grandmother Other Family history of arthritis Family history of cardiovascular disease Family history of seizure disorder Social History Social History Smoking packs per day: 1.5 Smoking cigarettes per day: 30.0 Years smoked: 45 Smoking pack-years: 67.50 Smoking status: Current every day smoker Tobacco type: cigarettes Second hand tobacco smoke exposure: Yes Alcohol intake: current Drinks per week: 12 Alcohol use details: WHISKEY/7UP Substance use: never Substance use type: does not use Do You Feel Safe in your Home?: Yes Lack of Transportation: No Lack of Food: Never True Current Housing: I Have Housing Concerned About Future Housing: No Difficulty Paying Gas/Electric Bills: No Difficulty Paying for Meds: No Currently Unemployed: No Education: High School Diploma/GED Difficulty w/ Childcare or Family Care: No Living arrangements: with family Additional living arrangements comments: Occupation/Education: retired Additional occupation/education comments: driving school bus Gender identity (if verbalized by the patient): Female Sexual Orientation (if Verbalized by the Patient): Straight or Heterosexual Spiritual care concerns: No Meds Home Medications and Allergies Home Medications Medication Instructions Recorded Confirmed Type alprazolam 0.5 mg tablet 0.5 mg PO TID PRN Anxiety 05/25/22 05/19/24 History amlodipine 10 mg tablet 10 mg PO QPM 05/25/22 05/19/24 History atorvastatin 40 mg tablet 40 mg PO QPM 05/25/22 05/19/24 History clopidogrel 75 mg tablet 75 mg PO QPM 05/25/22 05/19/24 History levothyroxine 175 mcg tablet 175 mcg PO QPM 05/25/22 05/19/24 History (Synthroid) metoprolol tartrate 50 mg tablet 50 mg PO BID 05/25/22 05/19/24 History olmesartan 40 mg tablet 40 mg PO QPM 05/25/22 05/19/24 History paroxetine HCl 40 mg tablet 40 mg PO QPM 05/25/22 05/19/24 History glimepiride 1 mg tablet 2 mg PO QAM 01/10/24 05/19/24 History glimepiride 1 mg tablet 1 mg PO QPM 05/12/24 05/19/24 History lansoprazole 30 mg capsule,delayed 30 mg PO HS 05/12/24 05/19/24 History release xoxzpt-omodgsri-nxwrevg 2 cap PO TID 05/12/24 05/19/24 History 36,000-114,000-180,000 unit capsule,delay rel (Creon) vibegron 75 mg tablet (Gemtesa) 75 mg PO HS 05/12/24 05/19/24 History Allergies Allergy/AdvReac Type Severity Reaction Status Date / Time naproxen Allergy Intermediate Gastrointestinal Verified 05/19/24 09:49 Upset prednisone Allergy Intermediate Rash Verified 05/19/24 09:49 NSAIDS (Non-Steroidal Allergy Unknown Gastrointestinal Verified 05/19/24 09:49 Anti-Inflamma Upset STEROIDS Allergy Intermediate HIVES Uncoded 05/19/24 09:49 Vital Signs Vital Signs - 24 hr 05/19/24 09:18 Temperature 97.5 F L Pulse Rate 72 Respiratory Rate 16 Blood Pressure 114/63 Pulse Oximetry 97 Oxygen Delivery Room Air Assessment and Plan Assessment and plan (1) Irritable bowel syndrome with diarrhea: Code(s): K58.0 - Irritable bowel syndrome with diarrhea Status: Acute Assessment and Plan: over from EGD with special attention to the small bowel, and will obtain duodenal biopsies. In addition, she is due for screening colonoscopy which will be per in this session. The patient is deemed a good candidate for the procedures. Consent signed. Will proceed. (2) Colon cancer screening: Code(s): Z12.11 - Encounter for screening for malignant neoplasm of colon Status: Acute (3) Abdominal bloating: Code(s): R14.0 - Abdominal distension (gaseous) Status: Acute (4) Upper abdominal pain: Code(s): R10.10 - Upper abdominal pain, unspecified Status: Acute
--- NOTE | 2024-05-19 10:29 | SUR.OPER ---
EGD: [id number] COLON: Start 1027
[2024-05-19 10:46] VITALS: BP 130/61; PULSE 66; RESP 15; O2SAT 95
[2024-05-19 10:56] VITALS: BP 118/70; PULSE 65; RESP 17; O2SAT 95
[2024-05-19 11:06] VITALS: BP 135/65; PULSE 67; RESP 16; O2SAT 93
[2024-05-19 11:16] VITALS: BP 145/76; PULSE 65; RESP 16; O2SAT 94
== END 2024-05-19 11:19 | disposition home or self-care (01) ==
PROVIDERS: PCP Internal Medicine; Referring Provider Nurse Practitioner; Visit Provider Internal Medicine Gastroenterology
PROC: 0DJ08ZZ Inspection of Upper Intestinal Tract, Via Natural or Artificial Opening Endoscopic (ICD-10-PCS; CPT 43235; principal; 2024-05-19 10:30)
DX: Z12.11 Encounter for screening for malignant neoplasm of colon (principal); K29.30 Chronic superficial gastritis without bleeding; I10 Essential (primary) hypertension; E78.00 Pure hypercholesterolemia, unspecified; K58.0 Irritable bowel syndrome with diarrhea; F41.8 Other specified anxiety disorders; E03.9 Hypothyroidism, unspecified; F17.210 Nicotine dependence, cigarettes, uncomplicated; Z79.02 Long term (current) use of antithrombotics/antiplatelets; Z79.84 Long term (current) use of oral hypoglycemic drugs
CPT/HCPCS: 45378; 43239; 82948; 88305; J2003; J2704; J7120

== ENCOUNTER 2024-09-17 09:42 | Outpatient (CLI) | payer OTHER, SELFPAY | END 2024-09-17 09:43 | disposition home or self-care (01) | PROVIDERS: PCP Internal Medicine; Visit Provider Nurse Practitioner | DX: R10.816 Epigastric abdominal tenderness (principal); R14.0 Abdominal distension (gaseous); I71.43 Infrarenal abdominal aortic aneurysm, without rupture; Z95.828 Presence of other vascular implants and grafts; I70.1 Atherosclerosis of renal artery; I70.90 Unspecified atherosclerosis | CPT/HCPCS: 74185; A9579; C8902 ==

== ENCOUNTER 2024-09-18 08:19 | Outpatient (CLI) | payer OTHER, SELFPAY | END 2024-09-18 08:20 | disposition home or self-care (01) | PROVIDERS: PCP Internal Medicine; Visit Provider Nurse Practitioner | DX: K30 Functional dyspepsia (principal); Z79.85 Long-term (current) use of injectable non-insulin antidiabetic drugs | CPT/HCPCS: 78264; A9541 ==